=== PATIENT | female | born 1995 | race African-American/Black ===

== ENCOUNTER 2024-07-01 19:28 | Emergency (ER) | payer OTHER ==
[2024-07-01 19:31] VITALS: BP 127/87; PULSE 82; RESP 18; TEMP 98.5; BMI 35.2
[2024-07-01] MEDS ORDERED: KETOROLAC TROMETHAMINE 30 MG/1 ML VIAL ONE (20:27)
[2024-07-01] MEDS: KETOROLAC TROMETHAMINE 30 MG/1 ML VIAL IM ONE (20:31)
== END 2024-07-01 20:53 | disposition home or self-care (01) ==
LOC: JERFT 19:28
PROC: 3E0233Z Introduction of Anti-inflammatory into Muscle, Percutaneous Approach (ICD-10-PCS; principal; 2024-07-01)
DX: K02.9 Dental caries, unspecified (principal); K01.1 Impacted teeth; K08.89 Other specified disorders of teeth and supporting structures
CPT/HCPCS: 99284-25